=== PATIENT | male | born 1985 | race Caucasian/White ===

== ENCOUNTER → 2019-09-02 | Outpatient (CLI) | payer OTHER ==
--- NOTE | 2019-09-03 10:46 | REP ---
MRI LEFT KNEE WITHOUT CONTRAST: HISTORY: Pain in the left knee. Twisting injury August 22, 2019. Rule out bucket-handle meniscal tear. There is no available comparison imaging. TECHNIQUE: Axial, coronal, and sagittal imaging planes are utilized. T1- and T2-weighted scans were obtained in the usual fashion with and without fat saturation. MRI FINDINGS: There is an ill-defined area of low T1 high T2 marrow edema in the posterior lateral tibial plateau consistent with contusion. There is a subtle indentation of the posterior tibial plateau cortex in this location suggesting a subtle osteochondral impaction. There is irregularity and fissuring and nearly full-thickness T2 hyperintensity in the lateral tibial plateau articular cartilage just anterior to this. There is no visible lateral meniscal tear. There is a nondisplaced vertically oriented tear through the posterior horn of the medial meniscus near its meniscal capsular attachment. No displaced meniscal material is appreciated. This extends to the body of the meniscus as well. There is no evidence of medial or lateral collateral ligament disruption. The posterior cruciate ligament is intact. The anterior cruciate ligament shows evidence of acute complete disruption. Patellar and quadriceps tendons are intact. There is a moderate joint effusion with heterogeneous synovial thickening and heterogeneous signal intensity in the synovial fluid. There is extra-articular edema in the prepatellar region. There is a small Chambers's cyst with some edema surrounding and inferior to the cyst in the posteromedial distal thighs soft tissues. IMPRESSION: Findings consistent with acute complete ACL disruption. There is a nondisplaced vertically oriented tear through the posterior body, posterior horn and midbody of the medial meniscus. There is an ostial cartilage impaction injury in the posterior tibial plateau laterally with surrounding edema. Moderate to large joint effusion. Small Chambers's cyst. Extra-articular soft tissue edema. Electronically Signed by Jame Cuevas MD 09/04/2019 05:11 A
== END ==
LOC: M RAD 18:05
PROVIDERS: ATTEND Orthopaedic Surgery Sports Medicine
DX: M25.562 Pain in left knee (principal)

== ENCOUNTER 2021-04-02 09:58 | Emergency (ER) | payer OTHER ==
[~2021-04-02] VITALS: Ht 180.3 cm; Wt 96.6 kg
[2021-04-02 11:53] VITALS: BP 132/84
== END 2021-04-02 12:03 | disposition home or self-care (01) ==
LOC: M ED 09:58
DX: S29.011A Strain of muscle and tendon of front wall of thorax, initial encounter (principal); X50.9XXA Other and unspecified overexertion or strenuous movements or postures, initial encounter; Y92.89 Other specified places as the place of occurrence of the external cause; Y93.B3 Activity, free weights

== ENCOUNTER → 2022-09-19 | Outpatient (CLI) | payer OTHER | LOC: M RAD 11:27 | PROVIDERS: ATTEND Physician Assistant | DX: M79.605 Pain in left leg (principal) ==

== ENCOUNTER → 2024-01-15 | Outpatient (CLI) | payer OTHER | LOC: M RAD 13:02 | PROVIDERS: ATTEND Physician Assistant Medical | DX: N50.811 Right testicular pain (principal) ==

== ENCOUNTER → 2024-05-06 | Outpatient (REF) | payer OTHER ==
[2024-05-06 13:11] LABS: APPEARANCE, URINE CLEAR (CLEAR); BACTERIA, URINE AUTO NEGATIVE (NEGATIVE); BILIRUBIN, URINE AUTO NEGATIVE (NEGATIVE); BLOOD, URINE BLOOD NEGATIVE (NEGATIVE); COLOR, URINE YELLOW (YELLOW); GLUCOSE, URINE (UA) AUTO NEGATIVE (NEGATIVE); KETONE, URINE AUTO NEGATIVE (NEGATIVE); LEUKOCYTE ESTERASE, URINE AUTO NEGATIVE (NEGATIVE); NITRITE, URINE AUTO NEGATIVE (NEGATIVE); PROTEIN, URINE AUTO NEGATIVE (NEGATIVE); RBC, URINE AUTO 1 /HPF (0-3); SPECIFIC GRAVITY URINE AUTO 1.018 (1.002-1.035); SQUAMOUS EPITHELIAL CELL UR AU 0 /HPF (0-6); UROBILINOGEN, URINE AUTO 0.2 mg/dL (0.0-2.0); WBC, URINE AUTO 0 /HPF (0-3)
== END ==
LOC: M SMT 12:36
PROVIDERS: ATTEND Physician Assistant
DX: N45.1 Epididymitis (principal)